=== PATIENT | male | born 1985 | race Two or more races ===

== ENCOUNTER 2024-01-16 11:41 | Inpatient (IN) | payer SELFPAY ==
[2024-01-16 12:18] VITALS: BMI 27.3
[2024-01-16] MEDS ORDERED: diazePAM CARPU-JECT 10 MG/2 ML DISP.SYRIN ONE (12:29)
[2024-01-16] MEDS ORDERED: ACETAMINOPHEN INJECTION 100 ML IVPB ONE (12:30)
[2024-01-16] MEDS ORDERED: ONDANSETRON 4 MG/2 ML VIAL ONE (12:30)
[2024-01-16] MEDS: LACTATED RINGERS SOLUTION 1000 ML INFUS.BAG IV ONE (12:38)
[2024-01-16] MEDS: diazePAM CARPU-JECT 10 MG/2 ML DISP.SYRIN IVPUSH ONE (12:38)
[2024-01-16] MEDS: ONDANSETRON 4 MG/2 ML VIAL IVPUSH ONE (12:39)
[2024-01-16] MEDS: ACETAMINOPHEN 1000 MG/100 ML BAG IVPB ONE (12:39)
[2024-01-16 12:41] LABS: BASO % 0.3 % (0-2.0); EOS % 0.5 % (0-4.5); HEMATOCRIT 37.9 % (35.4-49); HEMOGLOBIN 13.3 GM/dL (11.7-16.9); LYMPH % 7.1 % (8-40); MCH 34.4 pg (25.7-33.7); MCHC 35.2 g/dl (32.0-35.9); MEAN CELL VOLUME 97.7 fl (80-96); MEAN PLT VOLUME 7.4 fl (7.5-11.1); NEUT % 86.1 % (42.8-82.8); PLATELET COUNT 131 10^3/uL (134-434); RBC 3.88 M/mm3 (4.00-5.60); RDW 15.1 % (11.9-15.9); WHITE BLOOD COUNT 5.8 K/mm3 (4.0-10.0)
[2024-01-16 12:47] LABS: INR 1.1 (0.83-1.09); PROTHROMBIN TIME (PATIENT) 12.4 SEC (9.7-13.0)
[2024-01-16 12:50] LABS: ACTIVATED PTT 28.4 SECONDS (25.2-36.5)
[2024-01-16 12:59] LABS: CHLORIDE 103 mmol/L (98-107); POTASSIUM 3.3 mmol/L (3.5-5.1); SODIUM 137 mmol/L (136-145)
[2024-01-16] MEDS ORDERED: chlordiazePOXIDE HCL 25 MG CAPSULE ONE (12:59)
[2024-01-16] MEDS ORDERED: FAMOTIDINE 20 MG/50 ML IVPB 20 MG/50 ML MG IVPB ONE (13:00)
[2024-01-16 13:01] LABS: ALBUMIN 3.9 g/dl (3.4-5.0); ANION GAP 11 mmol/L (4-13); CO2 23 mmol/L (21-32); GLUCOSE,RANDOM 105 mg/dL (74-106); MAGNESIUM 1.7 mg/dL (1.8-2.4)
[2024-01-16 13:04] LABS: CREATININE 0.9 mg/dL (0.55-1.3); SGOT/AST 94 U/L (15-37); SGPT/ALT 57 U/L (13-61)
[2024-01-16 13:06] LABS: BILIRUBIN,TOTAL 0.6 mg/dL (0.2-1); TOT PROT 7.7 g/dl (6.4-8.2)
[2024-01-16 13:07] LABS: ALK PHOS 133 U/L (45-117)
[2024-01-16] MEDS: FAMOTIDINE 20 MG/50 ML IVPB 20 MG/50 ML MG IVPB ONE (13:32)
[2024-01-16] MEDS: chlordiazePOXIDE HCL 25 MG CAPSULE PO ONE (13:32)
[2024-01-16 17:05] LABS: EPI CELLS 4 /uL (0-25.1); HYALINE CASTS 0 /uL (0-3.1); PH,URINE 5.5 (5.0-8.0); URINE APPEARANCE CLEAR; URINE BACTERIA 2 /uL (0-1359); URINE BILIRUBIN NEGATIVE (NEGATIVE); URINE COLOR YELLOW; URINE GLUCOSE (UA) NEGATIVE (NEGATIVE); URINE KETONE TRACE (NEGATIVE); URINE LEUK ESTERASE NEGATIVE (NEGATIVE); URINE NITRITE NEGATIVE (NEGATIVE); URINE PROTEIN 1+ (NEGATIVE); URINE RBC 13 /uL (0-23.9); URINE UROBILINOGEN 0.2 mg/dL (0.2-1.0); URINE WBC 5 /uL (0-25.8)
[2024-01-16] MEDS ORDERED: LORazepam 1 MG TABLET PO PRN (18:07)
[2024-01-16] MEDS: THIAMINE HCL 200 MG/2 ML VIAL IVPB ONE ×2 (21:09→21:36)
[2024-01-16] MEDS: LACTATED RINGERS SOLUTION 1,000 ML/1,000 ML INFUS.BAG IV SCH (21:09)
[2024-01-16] MEDS: LORazepam 1 MG TABLET PO SCH (23:46)
[2024-01-17] MEDS: THIAMINE HCL 200 MG/2 ML VIAL IVPB SCH (02:07)
[2024-01-17 08:45] LABS: HEMATOCRIT 37.9 % (35.4-49); HEMOGLOBIN 13.1 GM/dL (11.7-16.9); MCH 34.2 pg (25.7-33.7); MCHC 34.5 g/dl (32.0-35.9); MEAN CELL VOLUME 99.1 fl (80-96); MEAN PLT VOLUME 7.9 fl (7.5-11.1); PLATELET COUNT 113 10^3/uL (134-434); RBC 3.82 M/mm3 (4.00-5.60); RDW 14.9 % (11.9-15.9); WHITE BLOOD COUNT 4.8 K/mm3 (4.0-10.0)
[2024-01-17 09:08] LABS: POTASSIUM 3.2 mmol/L (3.5-5.1)
[2024-01-17 09:12] LABS: BLOOD UREA NITROGEN 5.8 mg/dL (7-18); CALCIUM 8.6 mg/dL (8.5-10.1); MAGNESIUM 1.6 mg/dL (1.8-2.4)
[2024-01-17 09:15] LABS: CREATININE 0.7 mg/dL (0.55-1.3); PHOSPHOROUS 3.4 mg/dL (2.5-4.9)
[2024-01-17] MEDS ORDERED: THIAMINE 100 MG TABLET PO SCH ×2 (10:00→22:00)
[2024-01-17] MEDS: FOLIC ACID 1 MG TABLET (FP) PO SCH (10:58)
[2024-01-17] MEDS: CYANOCOBALAMIN (VITAMIN B-12) 100 MCG TABLET PO SCH (10:59)
[2024-01-17] MEDS: ENOXAPARIN NA (PORCINE) 40 MG/0.4 ML DISP.SYRIN SQ SCH (10:59)
[2024-01-17] MEDS ORDERED: LOPERAMIDE HCL 2 MG CAPSULE PO PRN (11:26)
[2024-01-17] MEDS ORDERED: MAG HYDROX/AL HYDROX/SIMETH 30 ML UNIT-DOSE CUP PO PRN (11:26)
[2024-01-17] MEDS ORDERED: IBUPROFEN 400 MG TABLET (FP) PO PRN (11:26)
[2024-01-17] MEDS ORDERED: MAGNESIUM HYDROX 2400MG/30ML ORAL SUSPENSION 30 ML CUP PO PRN (11:26)
[2024-01-17] MEDS ORDERED: BENZOCAINE/MENTHOL (CHLORASEPTIC ) LOZENGE MM PRN (11:26)
[2024-01-17] MEDS ORDERED: POLYETHYLENE GLYCOL (HEALTHYLAX) 3350 17 GM PACKET PO PRN (11:26)
[2024-01-17] MEDS ORDERED: guaiFENesin 600 MG TABLET.ER (FP) PO PRN (11:26)
[2024-01-17] MEDS ORDERED: BISMUTH SUBSALICYLATE 524 MG/30 ML PO PRN (11:26)
[2024-01-17] MEDS ORDERED: BENZONATATE 200 MG CAPSULE PO PRN (11:26)
[2024-01-17] MEDS ORDERED: DICYCLOMINE HCL 10 MG CAPSULE PO PRN (11:26)
[2024-01-17] MEDS ORDERED: IBUPROFEN 600 MG TABLET (FP) PO PRN (11:26)
[2024-01-17] MEDS ORDERED: METHOCARBAMOL 500 MG TABLET PO PRN (11:26)
[2024-01-17 12:10] LABS: METHADONE, UR NEGATIVE (NEGATIVE); OPIATES, URI NEGATIVE (NEGATIVE); PHENCYCLIDINE,URINE NEGATIVE (NEGATIVE); URINE AMPHETAMINES NEGATIVE (NEGATIVE); URINE BARBITURATES NEGATIVE (NEGATIVE); URINE BENZODIAZEPINES NEGATIVE (NEGATIVE)
[2024-01-17 12:12] LABS: COCAINE, UR NEGATIVE (NEGATIVE)
[2024-01-17] MEDS: MAGNESIUM SULFATE IN WATER 2 GM/50 ML IVPB IVPB ONE (15:56)
[2024-01-17] MEDS: POTASSIUM CHLORIDE ORAL LIQUID 20 MEQ/15 ML PO ONE (15:56)
[2024-01-17] MEDS: amLODIPine BESYLATE 2.5 MG TABLET (FP) PO SCH (17:18)
[2024-01-17] MEDS: POTASSIUM CHLORIDE ORAL LIQUID 20 MEQ/15 ML PO SCH (22:34)
[2024-01-17] MEDS: MELATONIN 5 MG TABLETS PO SCH (22:34)
[2024-01-18] MEDS: LORazepam 1 MG TABLET PO SCH (06:19)
[2024-01-18 07:48] LABS: BASO % 0.4 % (0-2.0); EOS % 2.2 % (0-4.5); HEMATOCRIT 39.1 % (35.4-49); HEMOGLOBIN 13.4 GM/dL (11.7-16.9); LYMPH % 13.6 % (8-40); MCH 34.1 pg (25.7-33.7); MCHC 34.3 g/dl (32.0-35.9); MEAN CELL VOLUME 99.5 fl (80-96); MEAN PLT VOLUME 8.9 fl (7.5-11.1); MONO % 9.7 % (3.8-10.2); NEUT % 74.1 % (42.8-82.8); PLATELET COUNT 118 10^3/uL (134-434); RBC 3.93 M/mm3 (4.00-5.60); RDW 15.1 % (11.9-15.9); WHITE BLOOD COUNT 4.3 K/mm3 (4.0-10.0)
[2024-01-18 07:59] LABS: POTASSIUM 3.6 mmol/L (3.5-5.1)
[2024-01-18 08:01] LABS: ALBUMIN 3.5 g/dl (3.4-5.0); CALCIUM 8.5 mg/dL (8.5-10.1)
[2024-01-18 08:02] LABS: BLOOD UREA NITROGEN 6.7 mg/dL (7-18); MAGNESIUM 1.9 mg/dL (1.8-2.4)
[2024-01-18 08:04] LABS: CREATININE 0.6 mg/dL (0.55-1.3)
[2024-01-18 08:06] LABS: BILIRUBIN,TOTAL 1.3 mg/dL (0.2-1); TOT PROT 7.3 g/dl (6.4-8.2)
[2024-01-18] MEDS: amLODIPine BESYLATE 2.5 MG TABLET (FP) PO SCH (10:28)
[2024-01-18] MEDS: PRENATAL VITAMINS W/ FOLIC ACID TABLET (FP) PO SCH (10:28)
[2024-01-18] MEDS: ONDANSETRON *ODT* 4 MG TABLET SL PRN (22:51)
[2024-01-18] MEDS: ACETAMINOPHEN 325 MG TABLET (FP) PO PRN (22:51)
[2024-01-19] MEDS: LORazepam 0.5 MG TABLET PO SCH (05:38)
[2024-01-19 07:54] LABS: BASO % 0.5 % (0-2.0); EOS % 2.8 % (0-4.5); HEMATOCRIT 42.7 % (35.4-49); HEMOGLOBIN 14.3 GM/dL (11.7-16.9); LYMPH % 22.2 % (8-40); MCH 33.8 pg (25.7-33.7); MCHC 33.5 g/dl (32.0-35.9); MEAN CELL VOLUME 100.9 fl (80-96); MEAN PLT VOLUME 8.3 fl (7.5-11.1); MONO % 15.3 % (3.8-10.2); NEUT % 59.2 % (42.8-82.8); PLATELET COUNT 122 10^3/uL (134-434); RBC 4.23 M/mm3 (4.00-5.60); RDW 15.1 % (11.9-15.9); WHITE BLOOD COUNT 4.7 K/mm3 (4.0-10.0)
[2024-01-19 08:09] LABS: POTASSIUM 4.1 mmol/L (3.5-5.1)
[2024-01-19 08:11] LABS: MAGNESIUM 1.8 mg/dL (1.8-2.4)
[2024-01-19 08:13] LABS: ALBUMIN 3.9 g/dl (3.4-5.0)
[2024-01-19 08:15] LABS: BLOOD UREA NITROGEN 8.6 mg/dL (7-18); CALCIUM 9.1 mg/dL (8.5-10.1)
[2024-01-19 08:18] LABS: BILIRUBIN,TOTAL 0.8 mg/dL (0.2-1)
[2024-01-19 08:19] LABS: CREATININE 0.7 mg/dL (0.55-1.3)
[2024-01-20] MEDS: LORazepam 0.5 MG TABLET PO ONE (05:53)
[2024-01-20 07:12] LABS: BASO % 0.3 % (0-2.0); EOS % 2.1 % (0-4.5); HEMATOCRIT 41.8 % (35.4-49); LYMPH % 17.8 % (8-40); MCH 33.8 pg (25.7-33.7); MCHC 33.5 g/dl (32.0-35.9); MEAN CELL VOLUME 100.8 fl (80-96); MEAN PLT VOLUME 8.2 fl (7.5-11.1); MONO % 15.2 % (3.8-10.2); NEUT % 64.6 % (42.8-82.8); PLATELET COUNT 136 10^3/uL (134-434); RBC 4.14 M/mm3 (4.00-5.60); RDW 15.3 % (11.9-15.9); WHITE BLOOD COUNT 5.4 K/mm3 (4.0-10.0)
[2024-01-20 07:27] LABS: CALCIUM 9.2 mg/dL (8.5-10.1)
[2024-01-20 07:28] LABS: ALBUMIN 3.9 g/dl (3.4-5.0); BLOOD UREA NITROGEN 12.4 mg/dL (7-18); MAGNESIUM 1.6 mg/dL (1.8-2.4)
[2024-01-20 07:31] LABS: CREATININE 0.8 mg/dL (0.55-1.3); PHOSPHOROUS 4.1 mg/dL (2.5-4.9)
[2024-01-20 07:32] LABS: BILIRUBIN,TOTAL 0.8 mg/dL (0.2-1)
[2024-01-20] MEDS: NAPH,MB-DB/K PH,MBDB POWDER PACKET PO ONE (08:47)
[2024-01-20] MEDS: PANTOPRAZOLE 40 MG TABLET PO SCH (11:02)
[2024-01-20 14:14] VITALS: RESP 18
[2024-01-20] MEDS: MAGNESIUM 2GM/50ML STERILE WATER IVPB IVPB ONE (17:15)
[2024-01-21 08:06] LABS: BASO % 0.5 % (0-2.0); EOS % 2.4 % (0-4.5); HEMOGLOBIN 14.2 GM/dL (11.7-16.9); LYMPH % 17.4 % (8-40); MCHC 33.8 g/dl (32.0-35.9); MEAN CELL VOLUME 100.5 fl (80-96); MEAN PLT VOLUME 8.1 fl (7.5-11.1); MONO % 14.4 % (3.8-10.2); NEUT % 65.3 % (42.8-82.8); PLATELET COUNT 140 10^3/uL (134-434); RBC 4.18 M/mm3 (4.00-5.60); RDW 14.9 % (11.9-15.9); WHITE BLOOD COUNT 5.8 K/mm3 (4.0-10.0)
[2024-01-21 08:20] LABS: POTASSIUM 4.1 mmol/L (3.5-5.1)
[2024-01-21 08:22] LABS: CALCIUM 9.1 mg/dL (8.5-10.1)
[2024-01-21 08:23] LABS: BLOOD UREA NITROGEN 15.6 mg/dL (7-18); MAGNESIUM 2.2 mg/dL (1.8-2.4)
[2024-01-21 08:26] LABS: CREATININE 0.8 mg/dL (0.55-1.3); PHOSPHOROUS 4.1 mg/dL (2.5-4.9)
[2024-01-21 08:27] LABS: BILIRUBIN,TOTAL 0.8 mg/dL (0.2-1); TOT PROT 8.3 g/dl (6.4-8.2)
[2024-01-21 18:31] VITALS: BP 110/71; PULSE 70; TEMP 97.5
== END 2024-01-21 19:22 | disposition home or self-care (01) | DRG 775 ==
LOC: JER 11:41 → JERBED 14:25 → J4W 18:03
PROVIDERS: ADMIT Internal Medicine; ATTEND Internal Medicine
DX: F10.239 Alcohol dependence with withdrawal, unspecified (principal); R56.9 Unspecified convulsions; I10 Essential (primary) hypertension; R16.0 Hepatomegaly, not elsewhere classified; D69.6 Thrombocytopenia, unspecified; E86.0 Dehydration; E51.2 Wernicke's encephalopathy; I16.0 Hypertensive urgency; K29.70 Gastritis, unspecified, without bleeding; D53.9 Nutritional anemia, unspecified
CPT/HCPCS: 0241U-QW; 36415; 70450-TC; 70551-TC; 71045-TC-FY; 72125-TC; 73562-TC-RT-FY; 80048; 80053; 80307; 81003; 82607; 82746; 82962; 83036; 83690; 83735; 84100; 84443; 84484; 85025; 85027; 85610; 85730; 87086; 93005; 93010; 97116-GP; 97162-GP; 99285-25; J0131; Q0162